=== PATIENT | female | born 1990 | race Caucasian/White ===

== ENCOUNTER → 2016-04-28 | Outpatient (CLI) | payer MEDICAID ==
[~2016-04-28] MED LIST: FERR325T20 PO; HYDR-3240 PO; IBUP-1222 PO; None per pt; PNV91TAB3 PO
== END | disposition home or self-care (01) ==
LOC: CFH 11:33
PROVIDERS: ATTEND Urology
DX: N28.89 Other specified disorders of kidney and ureter (principal)
CPT/HCPCS: 74000

== ENCOUNTER 2016-04-29 11:20 | Day surgery (SDC) | payer MEDICAID ==
[~2016-04-29] VITALS: Ht 170.2 cm; Wt 75.0 kg
[2016-04-29] MEDS ORDERED: LACTATED RINGERS 1,000 ML IV SCH (11:28)
[2016-04-29 11:42] VITALS: BP 121/84
[2016-04-29 12:02] LABS: HCG UR OBC PASS
[2016-04-29] MEDS ORDERED: FENTANYL PF 250 MCG/5ML ONE (13:57)
[2016-04-29] MEDS ORDERED: MIDAZOLAM 1 MG/ML, 2ML ONE (13:57)
[2016-04-29] MEDS ORDERED: CEFAZOLIN 1,000 MG ONE (14:53)
[2016-04-29] MEDS ORDERED: PROPOFOL 10 MG/ML, 20ML ONE (14:53)
[2016-04-29] MEDS ORDERED: SUCCINYLCHOLINE 20 MG/ML, 10ML ONE (14:53)
[2016-04-29] MEDS ORDERED: ONDANSETRON 2MG/ML, 2ML ONE (14:53)
[2016-04-29] MEDS ORDERED: DEXAMETHASONE 4 MG/ML, 5ML ONE (14:53)
[2016-04-29] MEDS ORDERED: HYDROmorphone 1 MG/ML, 1ML IV PRN (15:30)
[2016-04-29] MEDS ORDERED: FENTANYL PF 100 MCG/2ML IV PRN (15:30)
[2016-04-29] MEDS ORDERED: OXYcodone 5 MG/5 ML ORAL.SOL UDC PO PRN (15:30)
[2016-04-29] MEDS ORDERED: MEPERIDINE/PF 25MG/0.5ML IVPush PRN (15:30)
[2016-04-29] MEDS ORDERED: ALBUTEROL/IPRATROPIUM 2.5MG/0.5MG, 3 ML NPPB PRN (15:30)
[2016-04-29] MEDS ORDERED: LABETALOL 5MG/ML, 20ML IV PRN (15:30)
[2016-04-29] MEDS ORDERED: MIDAZOLAM 1 MG/ML, 2ML IV PRN (15:30)
[2016-04-29] MEDS ORDERED: PROMETHAZINE 25 MG/ML, 1ML IV PRN (15:30)
[2016-04-29] MEDS ORDERED: hydrALAzine 20 MG/ML, 1ML IV PRN (15:30)
[2016-04-29] MEDS ORDERED: ACETAMINOPHEN 325 MG TABLET PO PRN (15:30)
[2016-04-29] MEDS ORDERED: ONDANSETRON 2MG/ML, 2ML IVPush PRN (15:30)
== END 2016-04-29 17:35 | disposition home or self-care (01) ==
LOC: OUT 11:20
PROVIDERS: ATTEND Urology
DX: N20.0 Calculus of kidney (principal)
CPT/HCPCS: 36415; 50590; 81025; 84703; J0330; J0690; J1100; J2250; J2405; J2704; J3010; J7120

== ENCOUNTER → 2016-05-25 | Outpatient (CLI) | payer MEDICAID | END | disposition home or self-care (01) | LOC: CFH 11:59 | PROVIDERS: ATTEND Urology | DX: N20.0 Calculus of kidney (principal) | CPT/HCPCS: 74000 ==

== ENCOUNTER → 2016-07-22 | Outpatient (CLI) | payer MEDICAID | END | disposition home or self-care (01) | LOC: CFH 11:44 | PROVIDERS: ATTEND Urology | DX: N20.0 Calculus of kidney (principal) | CPT/HCPCS: 74000 ==

== ENCOUNTER 2016-08-27 10:46 | Emergency (ER) | payer MEDICAID ==
[~2016-08-27] VITALS: Ht 168.9 cm; Wt 70.0 kg
[2016-08-27 10:53] VITALS: BP 126/81
[2016-08-27] MEDS ORDERED: DEXAMETHASONE 4 MG TABLET ONE (11:18)
[2016-08-27] MEDS ORDERED: KETOROLAC 30 MG/1 ML ONE (11:18)
[2016-08-27] MEDS ORDERED: KETOROLAC 30 MG/1 ML IM ONE (11:30)
[2016-08-27] MEDS ORDERED: DEXAMETHASONE 4 MG TABLET PO ONE (11:30)
[2016-08-27 12:00] LABS: RAPID INFLUENZA A Negative (Negative); RAPID INFLUENZA B Negative (Negative)
== END 2016-08-27 12:24 | disposition home or self-care (01) ==
LOC: ED 11:17
DX: B34.9 Viral infection, unspecified (principal)
CPT/HCPCS: 87400; 96372; 99283; J1885